=== PATIENT | female | born 1940 | race Caucasian/White ===

== ENCOUNTER 2017-05-25 12:43 | Outpatient (CLI) | payer MEDICARE, MEDICAID ==
[~2017-05-25] VITALS: Ht 191.3 cm; Wt 91.6 kg
[2017-05-25 13:11] LABS: TOTAL HEMOGLOBIN 13.7 G/dl (12.0-16.0)
[2017-05-25] MEDS ORDERED: albuterol 2.5 MG/3 ML nebule NEB ONE (13:35)
== END 2017-05-25 23:59 | disposition home or self-care (01) ==
LOC: RT 12:43
PROVIDERS: ATTEND Internal Medicine Pulmonary Disease
DX: J44.9 Chronic obstructive pulmonary disease, unspecified (principal)
CPT/HCPCS: 85018; 94060; 94640; 94727; 94729; 94760

== ENCOUNTER 2018-08-08 08:04 | Day surgery (SDC) | payer MEDICARE, MEDICAID ==
[~2018-08-08] VITALS: Ht 161.3 cm; Wt 83.4 kg
[~2018-08-08 08:04] MED LIST: LIDOcaine 1% 30ml preserv. free vial SQ STA
[2018-08-08 08:23] VITALS: BP 136/67
[2018-08-08 09:11] LABS: BASOPHILS % (AUTO) 0.7 % (0-1); EOSINOPHILS # (AUTO) 0.1 X10'3 (0-0.9); EOSINOPHILS % (AUTO) 3.2 % (0-6); HEMATOCRIT 37.7 % (35.0-45.0); HEMOGLOBIN 12.8 g/dl (12.0-16.0); LYMPHOCYTES # (AUTO) 0.7 X10'3 (1.1-4.8); MEAN CORPUSCULAR HGB CONC 33.9 g/dL (33.0-36.5); MEAN CORPUSCULAR VOLUME 94.2 FL (78-98); MEAN PLATELET VOLUME 9.3 FL (7.4-10.4); MONOCYTES # (AUTO) 0.2 X10'3 (0-0.9); MONOCYTES % (AUTO) 8.2 % (2-12); NEUTROPHILS # (AUTO) 1.6 X10'3 (1.8-7.7); NEUTROPHILS % (AUTO) 61.9 % (42-75); PLATELET COUNT 58 X10'3 (140-440); RED CELL DISTRIBUTION WIDTH 15.6 % (11.5-14.5); WHITE BLOOD COUNT 2.6 X10'3 (4.5-11.0)
[2018-08-08 09:30] VITALS: BP 115/53
[2018-08-08 09:45] VITALS: BP 137/70
[2018-08-08 10:00] VITALS: BP 118/67
[2018-08-08 10:15] VITALS: BP 139/64
[2018-08-08 10:30] VITALS: BP 134/68
[2018-08-08 10:30] LABS: PLATELET ESTIMATE DECREASED; TOTAL CELLS COUNTED 100
[2018-08-08 10:33] LABS: ANISOCYTOSIS 1+
[2018-08-08 11:37] LABS: ALBUMIN,BODY FLUID 1.1 G/DL
[2018-08-08 14:14] LABS: BFAPPEAR CLEAR
[2018-08-08 14:17] LABS: BFCOLOR YELLOW; BFVOLUME 46 ML
[2018-08-08 14:18] LABS: BF RBC COUNT 925 /CU MM; BF WBC COUNT 515 /CU MM (0-1000)
[2018-08-08 14:19] LABS: NEUTROPHILS,BODY FLUID 4 %
[2018-08-08 14:22] LABS: BF MESOTHELIAL CELLS OCCASIONAL; LYMPHOCYTES,BODY FLUID 74 %; MONOCYTES,BODY FLUID 22 %
[2018-08-08] MEDS ORDERED: ASTA4CAP PO (18:50)
[2018-08-08] MEDS ORDERED: FERR325T28 PO (18:50)
[2018-08-08] MEDS ORDERED: LACT1CAP65 PO (18:50)
[2018-08-08] MEDS ORDERED: OMEG-79 PO (18:50)
[2018-08-08] MEDS ORDERED: FURO-149 PO (18:50)
[2018-08-08] MEDS ORDERED: CYAN25003 PO (18:50)
[2018-08-08] MEDS ORDERED: SELE200T25 PO (18:50)
[2018-08-08] MEDS ORDERED: METHYLFOLATE PO (18:50)
[2018-08-08] MEDS ORDERED: MULTIVITAMIN PO (18:50)
[2018-08-08] MEDS ORDERED: PANT20TA3 PO (18:50)
[2018-08-08] MEDS ORDERED: LIT300C PO (18:50)
[2018-08-08] MEDS ORDERED: CHOL-4 PO (18:50)
[2018-08-08] MEDS ORDERED: METH500C6 PO (18:50)
[2018-08-08] MEDS ORDERED: IODIN PO (18:50)
[2018-08-08] MEDS ORDERED: VITA1TAB20 PO (18:50)
[2018-08-08] MEDS ORDERED: CHON400C PO (18:50)
[2018-08-08] MEDS ORDERED: BIOT1TAB PO (18:50)
[2018-08-08] MEDS ORDERED: ASHWAGANDA PO (18:50)
[2018-08-08] MEDS ORDERED: oxygen NASALCANN (18:50)
[2018-08-08] MEDS ORDERED: ASCO10007 PO (18:50)
[2018-08-08] MEDS ORDERED: MILK150C2 PO (18:50)
[2018-08-08] MEDS ORDERED: LIOT25TA6 PO (18:50)
== END 2018-08-08 10:45 | disposition home or self-care (01) ==
LOC: SSTAY O 08:04
PROVIDERS: ATTEND Radiology Diagnostic Radiology
DX: R18.8 Other ascites (principal); K74.60 Unspecified cirrhosis of liver; J44.9 Chronic obstructive pulmonary disease, unspecified; Z90.49 Acquired absence of other specified parts of digestive tract; Z88.2 Allergy status to sulfonamides; Z98.49 Cataract extraction status, unspecified eye
CPT/HCPCS: 36415; 49083; 82042; 84157; 85025; 89051; C1729; J3490; 88108; 88305